=== PATIENT | male | born 1995 ===

== ENCOUNTER 2020-05-25 15:33 | Outpatient (REF) | payer OTHER, SELFPAY | END 2020-05-25 15:34 | disposition home or self-care (01) | LOC: HO.LAB 15:33 | PROVIDERS: Visit Provider Internal Medicine | DX: Z20.822 Contact with and (suspected) exposure to COVID-19 (principal) | CPT/HCPCS: 36415; C9803; U0003; U0005 ==

== ENCOUNTER 2021-03-16 12:45 | Outpatient (REF) | payer OTHER, SELFPAY | END 2021-03-16 12:46 | disposition home or self-care (01) | LOC: HO.LAB 12:45 | PROVIDERS: Visit Provider Internal Medicine | DX: Z20.822 Contact with and (suspected) exposure to COVID-19 (principal) | CPT/HCPCS: C9803; U0003; U0005 ==

== ENCOUNTER 2022-08-17 20:05 | Emergency (ER) | payer BC, SELFPAY ==
--- NOTE | 2022-08-17 20:07 | ED.SKABFB ---
HPI - Skin/Abscess/Foreign Bdy General Chief complaint: Skin/Abscess/Foreign Body <RADHA Chavez Last Filed: 08/17/22 20:09> Stated complaint: cysts under armpit <RADHA Chavez Last Filed: 08/17/22 20:09> Time Seen by Provider: 08/17/22 20:57 <RADHA Chavez Last Filed: 08/17/22 20:09> Source: patient <RADHA Montana Last Filed: 08/29/22 20:17> Mode of arrival: ambulatory <RADHA Montana Last Filed: 08/29/22 20:17> Limitations: no limitations <RADHA Montana Last Filed: 08/29/22 20:17> History of Present Illness HPI narrative: 27 year old male presets w/ recurrent abscess to R. axilla worsening over the past 2 days, he reports 2 days ago he went to [facility] to have another abscess drained however they did not want to drain this abscess. Reports pain, redness, warmth. He reports it is getting bigger over time. Denies fevers, chills. He reports he is currently not on antibiotics per <RADHA Montana Last Filed: 08/29/22 20:17> Related Data Home medications: Previous Rx's Medication Instructions Recorded doxycycline hyclate 100 mg capsule 100 mg PO BID 10 days #20 caps 08/17/22 cephalexin 500 mg capsule 500 mg PO TID #20 caps 08/22/22 hydrocodone 5 mg-acetaminophen 300 1 tab PO Q8H PRN pain #20 tabs 08/22/22 mg tablet <RADHA Chavez Last Filed: 08/17/22 20:09> Allergies/Adverse reactions: Allergies Allergy/AdvReac Type Severity Reaction Status Date / Time No Known Allergies Allergy Unverified 08/29/22 10:32 [No Known Allergies*] <RADHA Chavez Last Filed: 08/17/22 20:09> Review of Systems Review of Systems: Constitutional : No Fever, No Chills, Cardiovascular : No Chest Pain, No SOB Respiratory : No Dyspnea Gastrointestinal : No abdominal pain Musculoskeletal : No Joint Swelling Skin : No rash, positive skin abscess Neuro : No Weakness, No Numbness Psych : No SI/HI <RADHA Montana - Last Filed: 08/29/22 20:17> Yes all other systems are reviewed and are negative <RADHA Montana - Last Filed: 08/29/22 20:17> PMFSH Past Medical History Attestation statement: The following information was validated with the patient. <RADHA Montana - Last Filed: 08/29/22 20:17> Source: old records reviewed and nursing notes reviewed <RADHA Montana - Last Filed: 08/29/22 20:17> Medical History: Medical History Seasonal allergies <RADHA Chavez - Last Filed: 08/17/22 20:09> Family History Family History: Family History Father Stroke <RADHA Chavez - Last Filed: 08/17/22 20:09> Social History Social History: Social History Alcohol intake: current Alcohol intake frequency: holidays/special occasions only Alcohol type: hard liquor Patient Tobacco Use Status: Never used Tobacco <RADHA Chavez - Last Filed: 08/17/22 20:09> Physical Exam Vital Signs: Vital Signs: Last Vital Signs Temp 98.4 F 08/17/22 20:08 Pulse 88 08/17/22 20:08 Resp 08/17/22 20:08 BP 117/78 08/17/22 20:08 Pulse Ox 98 08/17/22 20:08 O2 Del Method Room Air 08/17/22 20:08 BMI result Body Mass Index 21.3 <RADHA Chavez - Last Filed: 08/17/22 20:09> Vital Signs: Last Vital Signs Temp 98.4 F 08/17/22 20:08 Pulse 88 08/17/22 20:08 Resp 08/17/22 20:08 BP 117/78 08/17/22 20:08 Pulse Ox 98 08/17/22 20:08 O2 Del Method Room Air 08/17/22 20:08 BMI result Body Mass Index 21.3 vss <RADHA Montana Last Filed: 08/29/22 20:17> Appearance: Alert.? Oriented X3.? No acute distress.? Head: Normocephalic, atraumatic, no step-offs or deformities Eyes: Pupils equal, round and reactive to light.? CVS: Normal heart rate and rhythm.? Pulses normal.? Respiratory: No respiratory distress.? Breath sounds normal.? Abdomen: Soft and nontender.? Skin: Skin warm and dry.? Normal skin color.? Normal skin turgor.?+ 2 cm x 2 cm large abscess to right axilla fluctuance in overlying erythema and warmth. Extremities: No lower extremity edema.? No calf ttp. 5/5 strength to bilateral upper and lower extremities Back: No midline tenderness, no C-spine tenderness, full range of motion, no CVA tenderness bilaterally Neuro: Oriented X 3.? No motor deficit.? No sensory deficit. CN 2-12 intact <RADHA Montana Last Filed: 08/29/22 20:17> Course Course Course Narrative: RME - 27 yo male presents to the ER for evaluation of 2 painful abscesses in his right axilla for the last 2 days. One of them was drained at [facility] 2 days ago, continues to drain. There is another one that is getting bigger by the minute. He states he is taking OTC antibiotics. Plan: I&D in [facility] <RADHA Chavez - Last Filed: 08/17/22 20:09> Reevaluation(s) Reevaluation #1: Fine-needle aspiration was done at the bedside 5 cc of purulence expressed. Patient tolerated procedure well. Educated patient on diagnosis and treatment plan, answered all question, patient verbalizes understanding. At this time patient will be discharged home, advised to return with new or worsening symptoms. Educated on worrisome signs and symptoms and when to return. At this time I feel comfortable discharge home. <RADHA Montana Last Filed: 08/29/22 20:17> Time: 20:17 <RADHA Montana Last Filed: 08/29/22 20:17> Medications Administered Discontinued Medications Generic Name Dose Route Start Last Admin Trade Name Freq PRN Reason Stop Dose Admin Cephalexin HCl 500 mg 08/17/22 21:55 08/17/22 22:10 Cephalexin 500 Mg Capsule PO 08/17/22 21:56 500 mg ONCE ONE Administration Doxycycline Monohydrate 100 mg 08/17/22 21:55 08/17/22 22:10 Doxycycline Monohydrate 100 Mg Capsule PO 08/17/22 21:56 100 mg ONCE ONE Administration <RADHA Chavez - Last Filed: 08/17/22 20:09> Medications Administered Discontinued Medications Generic Name Dose Route Start Last Admin Trade Name Freq PRN Reason Stop Dose Admin Cephalexin HCl 500 mg 08/17/22 21:55 08/17/22 22:10 Cephalexin 500 Mg Capsule PO 08/17/22 21:56 500 mg ONCE ONE Administration Doxycycline Monohydrate 100 mg 08/17/22 21:55 08/17/22 22:10 Doxycycline Monohydrate 100 Mg Capsule PO 08/17/22 21:56 100 mg ONCE ONE Administration <RADHA Montana Last Filed: 08/29/22 20:17> Medical Decision Making Medical Decision Making MDM Narrative: 27-year-old male presents with abscess right axilla x2 days. 2 cm x 2 cm large abscess to right axilla fluctuance in overlying erythema and warmth. Likely abscess. Concerns for possible cellulitis. No signs of necrotizing infection, threatened limb. Plan fine-needle aspiration. <RADHA Montana Last Filed: 08/29/22 20:17> Differential Diagnosis Differential Diagnoses: The differential diagnosis associated with the presentation includes <RADHA Montana Last Filed: 08/29/22 20:17> Likely abscess. Concerns for possible cellulitis. No signs of necrotizing infection, threatened limb. <RADHA Montana Last Filed: 08/29/22 20:17> Admission/Observation Consideration of admission/observation: Escalation of care including admission/observation considered <RADHA Montana Last Filed: 08/29/22 20:17> Consult Healthcare Provider Management of the patient was discussed with: Primary Care Provider <RADHA Montana - Last Filed: 08/29/22 20:17> Lab Data MDM Lab Attestation statement: I reviewed the patient's lab results. <RADHA Montana - Last Filed: 08/29/22 20:17> Core Measures AMI core measures followed: Yes <RADHA Montana - Last Filed: 08/29/22 20:17> Measure exclusions: not indicated <RADHA Montana - Last Filed: 08/29/22 20:17> Discharge Plan Discharge Clinical Impression: Abscess of skin or subcutaneous tissue <RADHA Chavez - Last Filed: 08/17/22 20:09> Patient Disposition: Home, Self-Care <RADHA Chavez Last Filed: 08/17/22 20:09> Instructions: Abscess (ED), Abscess Incision and Drainage (DC) <RADHA Chavez Last Filed: 08/17/22 20:09> Additional Instructions: Take your medications as prescribed. If you were prescribed antibiotics today, it is important that you take your medication to their entirety, do not skip any doses, do not finish them early. Follow-up with your primary care provider this week. Since this appears to be recurrent nature please follow-up with General surgery Return to the emergency department with new or worsening symptoms. Such as fevers, chills, chest pain, shortness of breath, nausea, vomiting, dizziness, headache, vision changes, lethargy In case of emergency call 911 Apply warm compresses to affected area <RADHA Chavez - Last Filed: 08/17/22 20:09> Prescriptions: New doxycycline hyclate 100 mg capsule 100 mg PO BID 10 Days Qty: 20 0RF No Action cephalexin 500 mg capsule 500 mg PO TID Qty: 20 0RF hydrocodone-acetaminophen 5-300 mg tablet 1 tab PO Q8H PRN (Reason: pain) Qty: 20 0RF Rx Instructions: Partial Fill upon patient request. <RADHA Chavez Last Filed: 08/17/22 20:09> Referrals: [facility] General Surgeons [Provider Group] - 2 days Physician,None [Primary Care Provider] - 2 days <RADHA Chavez - Last Filed: 08/17/22 20:09> Stand Alone Forms: Work/School Release <RADHA Chavez - Last Filed: 08/17/22 20:09> Interventions: ED Discharge Assessment Last Done: 08/17/22 22:12 <RADHA Chavez - Last Filed: 08/17/22 20:09> Discharge Date/Time: 08/17/22 22:15 <RADHA Chavez - Last Filed: 08/17/22 20:09>
[2022-08-17 20:08] VITALS: BP 117/78; PULSE 88; RESP 17; TEMP 36.9; O2SAT 98; BMI 21.3
[2022-08-17] MEDS: Doxycycline Monohydrate 100 MG CAPSULE PO (22:10)
[2022-08-17] MEDS: cephALEXin 500 MG CAPSULE PO (22:10)
== END 2022-08-17 22:15 | disposition home or self-care (01) ==
PROVIDERS: Emergency Provider Emergency Medicine
DX: L02.411 Cutaneous abscess of right axilla (principal); Z79.899 Other long term (current) drug therapy
CPT/HCPCS: 99282; 99283

== ENCOUNTER 2022-08-22 09:14 | Outpatient (REF) | payer BC, SELFPAY | END 2022-08-22 09:15 | disposition home or self-care (01) | LOC: HO.LAB 09:14 | PROVIDERS: Visit Provider Surgery | DX: L02.411 Cutaneous abscess of right axilla (principal); Z79.899 Other long term (current) drug therapy | CPT/HCPCS: 10061; 87070; 87077; 87186; 87205 ==

== ENCOUNTER → 2022-08-23 09:00 | Outpatient (BNVA) | payer BC, SELFPAY | PROVIDERS: Visit Provider Surgery ==

== ENCOUNTER → 2022-08-24 09:05 | Outpatient (BNVA) | payer BC, SELFPAY | PROVIDERS: Visit Provider Surgery ==

== ENCOUNTER → 2022-08-29 10:26 | Outpatient (BNVA) | payer BC, SELFPAY | PROVIDERS: Visit Provider Surgery ==

== ENCOUNTER 2023-10-08 09:04 | Outpatient (AMB) | payer BC, SELFPAY ==
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
[2023-10-08 09:25] VITALS: BP 118/72; PULSE 59; RESP 12; O2SAT 97; BMI 22.4
== END 2023-10-08 10:27 | disposition home or self-care (01) ==
PROVIDERS: PCP Physician Assistant Medical; Visit Provider Physician Assistant Medical
DX: Z00.00 Encounter for general adult medical examination without abnormal findings (principal); Z13.6 Encounter for screening for cardiovascular disorders; R07.81 Pleurodynia; S89.91XA Unspecified injury of right lower leg, initial encounter; M79.89 Other specified soft tissue disorders
CPT/HCPCS: 99385